=== PATIENT | female | born 1980 | race Caucasian/White ===

== ENCOUNTER 2023-01-10 09:33 | Emergency (ER) | payer BC ==
[~2023-01-10] VITALS: Ht 154.9 cm; Wt 63.6 kg
[2023-01-10 09:45] VITALS: BP 129/64; PULSE 81; TEMP 98.6; O2SAT 100
[2023-01-10] MEDS ORDERED: diazepam inj 5 MG/ML inj. IM ONE (10:25)
[2023-01-10] MEDS ORDERED: ketorolac trometh inj. 60 MG/2 ML VIAL IM ONE (10:25)
[2023-01-10] MEDS ORDERED: PRED20TA PO ×3 (10:35→10:56)
[2023-01-10] MEDS ORDERED: CYCL-1 PO ×3 (10:35→10:56)
[2023-01-10 10:47] VITALS: RESP 18
== END 2023-01-10 11:00 | disposition home or self-care (01) ==
LOC: ER 09:33
DX: S39.012A Strain of muscle, fascia and tendon of lower back, initial encounter (principal); M54.41 Lumbago with sciatica, right side; Z79.899 Other long term (current) drug therapy; X58.XXXA Exposure to other specified factors, initial encounter; Y93.89 Activity, other specified; Y92.89 Other specified places as the place of occurrence of the external cause; Y99.8 Other external cause status
CPT/HCPCS: 96372; 99284; J1885; J3360